=== PATIENT | female | born 1935 | race Caucasian/White ===

== ENCOUNTER → 2017-01-29 | Outpatient (CLI) | payer MEDICARE, OTHER ==
[2017-01-29 11:24] LABS: HEMOGLOBIN A1a 0.9 %; HEMOGLOBIN A1b 1.5 %; HEMOGLOBIN Ao 86.4 %; HEMOGLOBIN LA1C 1.8 %; HEMOGLOBIN P3 3.5 %
== END ==
LOC: PLAB 07:23
PROVIDERS: ATTEND Family Medicine
DX: E55.9 Vitamin D deficiency, unspecified (principal); R73.01 Impaired fasting glucose
CPT/HCPCS: 36415; 82306; 83036

== ENCOUNTER → 2017-04-26 | Outpatient (CLI) | payer MEDICARE, OTHER ==
[2017-04-26 09:14] LABS: BACTERIA, URINE MOD /hpf; BLOOD, URINE TRACE (NEG); GLUCOSE,URINE NEG (NEG); KETONE, URINE NEG (NEG); MUCUS URINE FEW /lpf (OCC); NITRITE,URINE NEG (NEG); SQUAMOUS EPITHELIAL CELL URINE 7 /hpf (0-5); URINE COLOR YELLOW (YELLW/STRAW)
[2017-04-26 09:19] LABS: HEMATOCRIT 40.9 % (35.0-46.0); MEAN CORPUSCULAR HEMOGLOBIN 30.3 PG (27.0-34.0); MEAN CORPUSCULAR HGB CONC 33.7 % (32.0-36.0); PLATELET COUNT 237 TH/MM3 (150-450); RED BLOOD COUNT 4.55 MIL/MM3 (4.00-5.30); RED CELL DISTRIBUTION WIDTH 13.3 % (11.6-17.2); REVIEW FLAG FINAL
[2017-04-26 09:36] LABS: ALT (GPT) 19 U/L (10-53); ANION GAP 6 MEQ/L (5-15); AST (GOT) 12 U/L (15-37); BICARBONATE 27.8 MEQ/L (21.0-32.0); BLOOD UREA NITROGEN 26 MG/DL (7-18); CHLORIDE 107 MEQ/L (98-107); GLOMERULAR FILTRATION RATE 48 ML/MIN (>89); GLUCOSE,FASTING 105 MG/DL (74-99); POTASSIUM 3.9 MEQ/L (3.5-5.1); SODIUM (NA) 141 MEQ/L (136-145)
[2017-04-26 09:45] LABS: ALKALINE PHOSPHATASE 66 U/L (45-117); FREE T4 0.85 NG/DL (0.76-1.46); LDL CHOLESTEROL 85 MG/DL (0-99); TOTAL BILIRUBIN ADULT 0.7 MG/DL (0.2-1.0)
== END ==
LOC: PLAB 07:07
PROVIDERS: ATTEND Family Medicine
DX: E55.9 Vitamin D deficiency, unspecified (principal); I10 Essential (primary) hypertension
CPT/HCPCS: 36415; 80053; 80061; 81001; 82306; 84439; 84443; 85027

== ENCOUNTER → 2017-10-03 | Outpatient (CLI) | payer MEDICARE, OTHER ==
[2017-10-03 10:14] LABS: CHOLESTEROL/ HDL RATIO 2.23 RATIO; HDL CHOLESTEROL 69.8 MG/DL (40.0-60.0)
== END ==
LOC: PLAB 07:40
PROVIDERS: ATTEND Family Medicine
DX: E78.5 Hyperlipidemia, unspecified (principal); E55.9 Vitamin D deficiency, unspecified
CPT/HCPCS: 36415; 80061; 82306

== ENCOUNTER → 2017-12-05 | Outpatient (CLI) | payer MEDICARE, OTHER | LOC: PLAB 07:29 | PROVIDERS: ATTEND Family Medicine | DX: E55.9 Vitamin D deficiency, unspecified (principal) | CPT/HCPCS: 36415; 82306 ==

== ENCOUNTER → 2018-02-28 | Outpatient (CLI) | payer MEDICARE, OTHER ==
[2018-02-28 10:35] LABS: ALBUMIN 3.8 GM/DL (3.4-5.0); AST (GOT) 21 U/L (15-37); BICARBONATE 26.5 MEQ/L (21.0-32.0); BLOOD UREA NITROGEN 20 MG/DL (7-18); CALCIUM 9.4 MG/DL (8.5-10.1); CHLORIDE 109 MEQ/L (98-107); CREATININE 1.05 MG/DL (0.50-1.00); GLOMERULAR FILTRATION RATE 50 ML/MIN (>89); GLUCOSE,FASTING 114 MG/DL (74-99); SODIUM (NA) 145 MEQ/L (136-145)
[2018-02-28 10:36] LABS: CHOLESTEROL 145 MG/DL (120-200); TRIGLYCERIDES 128 MG/DL (42-150)
[2018-02-28 10:38] LABS: BACTERIA, URINE MANY /hpf; BILIRUBIN, URINE NEG (NEG); BLOOD, URINE NEG (NEG); GLUCOSE,URINE NEG (NEG); HYALINE CAST, URINE 2 /lpf (RARE); KETONE, URINE NEG (NEG); MUCUS URINE FEW /lpf (OCC); NITRITE,URINE NEG (NEG); PH, URINE 5.5 (5.0-8.5); SQUAMOUS EPITHELIAL CELL URINE 3 /hpf (0-5); TRANSITIONAL EPI CELLS, URINE <1 /hpf; URINE COLOR YELLOW (YELLW/STRAW); URINE LEUKOCYTE ESTERASE LARGE (NEG)
[2018-02-28 10:44] LABS: ALKALINE PHOSPHATASE 65 U/L (45-117); ALT (GPT) 19 U/L (10-53); CHOLESTEROL/ HDL RATIO 2.44 RATIO; FREE T4 0.86 NG/DL (0.76-1.46); HDL CHOLESTEROL 59.3 MG/DL (40.0-60.0); LDL CHOLESTEROL 60 MG/DL (0-99); TOTAL BILIRUBIN ADULT 0.8 MG/DL (0.2-1.0); TOTAL PROTEIN 6.9 GM/DL (6.4-8.2)
[2018-02-28 10:50] LABS: HEMATOCRIT 38.2 % (35.0-46.0); HEMOGLOBIN 13.1 GM/DL (11.6-15.3); MEAN CELL VOLUME 87.9 FL (80.0-100.0); MEAN CORPUSCULAR HEMOGLOBIN 30.1 PG (27.0-34.0); MEAN CORPUSCULAR HGB CONC 34.2 % (32.0-36.0); MEAN PLATELET VOLUME 8.4 FL (7.0-11.0); PLATELET COUNT 203 TH/MM3 (150-450); RED BLOOD COUNT 4.34 MIL/MM3 (4.00-5.30); RED CELL DISTRIBUTION WIDTH 13.4 % (11.6-17.2)
== END ==
LOC: PLAB 07:39
PROVIDERS: ATTEND Family Medicine
DX: E78.5 Hyperlipidemia, unspecified (principal); I10 Essential (primary) hypertension; E55.9 Vitamin D deficiency, unspecified; N39.0 Urinary tract infection, site not specified; B96.20 Unspecified Escherichia coli [E. coli] as the cause of diseases classified elsewhere
CPT/HCPCS: 36415; 80053; 80061; 81001; 82306; 84439; 84443; 85027; 87077; 87086; 87186